=== PATIENT | female | born 1935 | race Caucasian/White ===

== ENCOUNTER → 2020-09-22 14:02 | Outpatient (BNVA) | payer MEDICARE, OTHER, SELFPAY | PROVIDERS: PCP Family Medicine; Visit Provider Anesthesiology | DX: M96.1 Postlaminectomy syndrome, not elsewhere classified (principal); M47.816 Spondylosis without myelopathy or radiculopathy, lumbar region; M54.16 Radiculopathy, lumbar region; G89.4 Chronic pain syndrome; C44.722 Squamous cell carcinoma of skin of right lower limb, including hip; C44.729 Squamous cell carcinoma of skin of left lower limb, including hip | CPT/HCPCS: 99202 ==

== ENCOUNTER → 2020-10-07 09:38 | Outpatient (BNVA) | payer MEDICARE, OTHER, SELFPAY | PROVIDERS: PCP Family Medicine; Visit Provider Anesthesiology | DX: M96.1 Postlaminectomy syndrome, not elsewhere classified (principal); M47.816 Spondylosis without myelopathy or radiculopathy, lumbar region; M54.16 Radiculopathy, lumbar region; G89.4 Chronic pain syndrome; C44.722 Squamous cell carcinoma of skin of right lower limb, including hip; C44.729 Squamous cell carcinoma of skin of left lower limb, including hip; Z79.899 Other long term (current) drug therapy | CPT/HCPCS: Q3014 ==

== ENCOUNTER 2020-11-30 05:45 | Outpatient (REF) | payer MEDICARE, OTHER, SELFPAY ==
--- NOTE | ~2020-11-30 | FL_ITS ---
EXAMINATION: XR FLUOROSCOPY WITH IMAGES CLINICAL INFORMATION: M47.816 - Spondylosis without myelopathy or radiculopathy COMPARISON: None. TECHNIQUE: Fluoroscopy performed by Chiquita Sandoval NP. Fluoroscopy time: 0.6 minutes DAP: 2.66 Gycm2 Images: 4 FINDINGS: There are spinal needles overlying the outer aspect left L3, L4, L5 neural foramen. There is contrast seen in the nerve sheaths with some transforaminal epidural extension. No visible vascular communication. FL/FL guidance in treatment room IMPRESSION: Fluoroscopy for pain management procedures.
== END 2020-11-30 05:46 | disposition home or self-care (01) ==
LOC: HO.RADIR 05:45
PROVIDERS: Visit Provider Anesthesiology
DX: M96.1 Postlaminectomy syndrome, not elsewhere classified (principal); M47.816 Spondylosis without myelopathy or radiculopathy, lumbar region; M54.16 Radiculopathy, lumbar region; G89.4 Chronic pain syndrome; C44.722 Squamous cell carcinoma of skin of right lower limb, including hip; C44.729 Squamous cell carcinoma of skin of left lower limb, including hip
CPT/HCPCS: 64493; 64494; 64495; Q9967

== ENCOUNTER → 2020-12-07 09:22 | Outpatient (BNVA) | payer MEDICARE, OTHER, SELFPAY | PROVIDERS: PCP Family Medicine; Visit Provider Nurse Practitioner Family | DX: M96.1 Postlaminectomy syndrome, not elsewhere classified (principal); M47.816 Spondylosis without myelopathy or radiculopathy, lumbar region; M54.16 Radiculopathy, lumbar region; G89.4 Chronic pain syndrome; C44.722 Squamous cell carcinoma of skin of right lower limb, including hip; C44.721 Squamous cell carcinoma of skin of unspecified lower limb, including hip; Z79.899 Other long term (current) drug therapy | CPT/HCPCS: Q3014 ==

== ENCOUNTER → 2020-12-21 09:16 | Outpatient (BNVA) | payer MEDICARE, OTHER, SELFPAY | PROVIDERS: PCP Family Medicine; Visit Provider Nurse Practitioner Family | DX: M96.1 Postlaminectomy syndrome, not elsewhere classified (principal); M47.816 Spondylosis without myelopathy or radiculopathy, lumbar region; M54.16 Radiculopathy, lumbar region; G89.4 Chronic pain syndrome; C44.722 Squamous cell carcinoma of skin of right lower limb, including hip; Z98.890 Other specified postprocedural states | CPT/HCPCS: 99212 ==

== ENCOUNTER → 2020-12-30 08:05 | Outpatient (BNVA) | payer MEDICARE, OTHER, SELFPAY | PROVIDERS: PCP Family Medicine; Visit Provider Nurse Practitioner Family | DX: M96.1 Postlaminectomy syndrome, not elsewhere classified (principal); M47.816 Spondylosis without myelopathy or radiculopathy, lumbar region; M54.16 Radiculopathy, lumbar region; G89.4 Chronic pain syndrome; C44.722 Squamous cell carcinoma of skin of right lower limb, including hip; C44.729 Squamous cell carcinoma of skin of left lower limb, including hip | CPT/HCPCS: 99212 ==

== ENCOUNTER → 2021-01-06 08:20 | Outpatient (BNVA) | payer MEDICARE, OTHER, SELFPAY | PROVIDERS: PCP Family Medicine; Visit Provider Anesthesiology | DX: M96.1 Postlaminectomy syndrome, not elsewhere classified (principal); M47.816 Spondylosis without myelopathy or radiculopathy, lumbar region; M54.16 Radiculopathy, lumbar region; G89.4 Chronic pain syndrome; C44.722 Squamous cell carcinoma of skin of right lower limb, including hip; Z88.0 Allergy status to penicillin; Z88.8 Allergy status to other drugs, medicaments and biological substances | CPT/HCPCS: Q3014 ==

== ENCOUNTER → 2021-01-18 15:45 | Outpatient (BNVA) | payer MEDICARE, OTHER, SELFPAY | PROVIDERS: PCP Family Medicine; Visit Provider Nurse Practitioner Family | DX: M96.1 Postlaminectomy syndrome, not elsewhere classified (principal); M47.816 Spondylosis without myelopathy or radiculopathy, lumbar region; M54.16 Radiculopathy, lumbar region; G89.4 Chronic pain syndrome; C44.722 Squamous cell carcinoma of skin of right lower limb, including hip; C44.729 Squamous cell carcinoma of skin of left lower limb, including hip | CPT/HCPCS: 99212 ==

== ENCOUNTER → 2021-02-14 09:18 | Outpatient (BNVA) | payer MEDICARE, OTHER, SELFPAY | PROVIDERS: PCP Family Medicine; Visit Provider Anesthesiology | DX: Z51.81 Encounter for therapeutic drug level monitoring (principal); M96.1 Postlaminectomy syndrome, not elsewhere classified; M47.816 Spondylosis without myelopathy or radiculopathy, lumbar region; M54.16 Radiculopathy, lumbar region; G89.4 Chronic pain syndrome; C44.722 Squamous cell carcinoma of skin of right lower limb, including hip; C44.729 Squamous cell carcinoma of skin of left lower limb, including hip | CPT/HCPCS: 99212 ==

== ENCOUNTER 2021-03-25 11:34 | Day surgery (SDC) | payer MEDICARE, OTHER, SELFPAY ==
[2021-03-18 14:34] VITALS: BMI 27.6
--- NOTE | 2021-03-24 09:32 | HO.ANESPROP2 ---
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 (Acute) Chronic pain syndrome (Acute) Radiculopathy, lumbar region (Acute) Spondylosis of lumbar spine (Acute) Postlaminectomy syndrome (Acute) Past Medical History Medical History (Updated 09/22/20 @ 17:59 by Dario Soliman MD) Chronic pain syndrome Postlaminectomy syndrome Radiculopathy, lumbar region 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 Social History Social History Advance Directives Information Provided: Yes (informational brochure mailed) Advance Directives on File: No Nutrition Risks: Surgical patient >75years Meds Allergies Allergy/AdvReac Type Severity Reaction Status Date / Time ciprofloxacin [From Cipro] AdvReac Intermediate rash Verified 03/22/21 09:48 doxycycline AdvReac Intermediate Unknown Verified 02/14/21 09:30 nitrofurantoin AdvReac Intermediate rash Verified 02/14/21 09:30 [From Macrobid] NSAIDS (Non-Steroidal AdvReac Intermediate rash/asthma Verified 02/14/21 09:30 Anti-Inflamma Penicillins AdvReac Intermediate rash Verified 02/14/21 09:30 salicylates AdvReac Intermediate unk Verified 02/14/21 09:30 sulfamethoxazole AdvReac Intermediate rash Verified 02/14/21 09:30 [From Bactrim] trimethoprim [From Bactrim] AdvReac Intermediate rash Verified 02/14/21 09:30 Home Medications Medication Instructions Recorded Confirmed Last Taken Type fluticasone 250 mcg-salmeterol 50 1 ea INHALATION BID 10/07/20 12/30/20 Unknown History mcg/dose blistr powdr for inhalation levothyroxine 88 mcg tablet 88 mcg PO DAILY 10/07/20 12/30/20 Unknown History (Synthroid) montelukast 10 mg tablet 10 mg PO DAILY 10/07/20 12/30/20 Unknown History omeprazole 10 mg capsule,delayed 10 mg PO DAILY 10/07/20 12/30/20 Unknown History release tiotropium bromide 1.25 2 puff INHALATION DAILY 10/07/20 12/30/20 Unknown History mcg/actuation mist for inhalation umeclidinium 62.5 mcg/actuation 1 inh INHALATION DAILY 10/07/20 12/30/20 Unknown History blister powder for inhalation albuterol sulfate 90 mcg/actuation 1 puff INHALATION Q8H g 12/07/20 12/30/20 Unknown History aerosol inhaler ascorbate calcium (vitamin C) 500 500 mg PO DAILY 12/21/20 12/30/20 Unknown History mg tablet cholecalciferol (vitamin D3) 25 25 mcg PO DAILY 12/21/20 12/30/20 Unknown History mcg (1,000 unit) capsule cranberry 400 mg capsule 400 mg PO DAILY 12/21/20 12/30/20 Unknown History lutein 6 mg capsule 6 mg PO DAILY 12/21/20 12/30/20 Unknown History vitamin B complex (B 1 tab PO DAILY 12/21/20 12/30/20 Unknown History Complex-Vitamin B12) vitamin K2 45 mcg capsule 45 mcg PO DAILY 12/21/20 12/30/20 Unknown History zoledronic acid 5 mg/100 mL in IV .yearly ml 12/21/20 12/30/20 Unknown History mannitol 5 %-water intravenous piggybck (Reclast) Exam Exam Date and Time: March 24, 2021 0932 Height,Weight and Vital Signs: Height 4 ft 11 in Weight 62.142 kg Assessment and Plan Assessment Anesthesia Assessment: Chart Reviewed Documented by User: Melida Matias MD 03/25/21 12:01 [facility] Past Medical History Medical History (Updated 09/22/20 @ 17:59 by Dario Soliman MD) Chronic pain syndrome Postlaminectomy syndrome Radiculopathy, lumbar region 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 Social History Social History Advance Directives Information Provided: Yes (informational brochure mailed) Advance Directives on File: No Nutrition Risks: Surgical patient >75years Meds Allergies Allergy/AdvReac Type Severity Reaction Status Date / Time ciprofloxacin [From Cipro] AdvReac Intermediate rash Verified 03/22/21 09:48 doxycycline AdvReac Intermediate Unknown Verified 02/14/21 09:30 nitrofurantoin AdvReac Intermediate rash Verified 02/14/21 09:30 [From Macrobid] NSAIDS (Non-Steroidal AdvReac Intermediate rash/asthma Verified 02/14/21 09:30 Anti-Inflamma Penicillins AdvReac Intermediate rash Verified 02/14/21 09:30 salicylates AdvReac Intermediate unk Verified 02/14/21 09:30 sulfamethoxazole AdvReac Intermediate rash Verified 02/14/21 09:30 [From Bactrim] trimethoprim [From Bactrim] AdvReac Intermediate rash Verified 02/14/21 09:30 Home Medications Medication Instructions Recorded Confirmed Last Taken Type fluticasone 250 mcg-salmeterol 50 1 ea INHALATION BID 10/07/20 12/30/20 Unknown History mcg/dose blistr powdr for inhalation levothyroxine 88 mcg tablet 88 mcg PO DAILY 10/07/20 12/30/20 Unknown History (Synthroid) montelukast 10 mg tablet 10 mg PO DAILY 10/07/20 12/30/20 Unknown History omeprazole 10 mg capsule,delayed 10 mg PO DAILY 10/07/20 12/30/20 Unknown History release tiotropium bromide 1.25 2 puff INHALATION DAILY 10/07/20 12/30/20 Unknown History mcg/actuation mist for inhalation umeclidinium 62.5 mcg/actuation 1 inh INHALATION DAILY 10/07/20 12/30/20 Unknown History blister powder for inhalation albuterol sulfate 90 mcg/actuation 1 puff INHALATION Q8H g 12/07/20 12/30/20 Unknown History aerosol inhaler ascorbate calcium (vitamin C) 500 500 mg PO DAILY 12/21/20 12/30/20 Unknown History mg tablet cholecalciferol (vitamin D3) 25 25 mcg PO DAILY 12/21/20 12/30/20 Unknown History mcg (1,000 unit) capsule cranberry 400 mg capsule 400 mg PO DAILY 12/21/20 12/30/20 Unknown History lutein 6 mg capsule 6 mg PO DAILY 12/21/20 12/30/20 Unknown History vitamin B complex (B 1 tab PO DAILY 12/21/20 12/30/20 Unknown History Complex-Vitamin B12) vitamin K2 45 mcg capsule 45 mcg PO DAILY 12/21/20 12/30/20 Unknown History zoledronic acid 5 mg/100 mL in IV .yearly ml 12/21/20 12/30/20 Unknown History mannitol 5 %-water intravenous piggybck (Reclast) Exam Airway Mallampati Class: II TM Dist: >3cm Neck ROM: Full
--- NOTE | ~2021-03-25 | FL_ITS ---
EXAMINATION: Intraoperative fluoroscopy CLINICAL INFORMATION: Lumbar stim trial COMPARISON: Intraoperative fluoroscopy 11/30/2020 TECHNIQUE: Intraoperative fluoroscopy was provided for use by Dr. Soliman. A total of 4 images were saved to PACS. A radiologist was not present during imaging. Today's dictation is only for administrative purposes to document intraoperative fluoroscopic usage. TOTAL FLUOROSCOPIC TIME: 5.4 minutes FL/FL guidance in OR FINDINGS~\^^ Intraoperative fluoroscopy provided for use by Dr. Soliman. Please see operative note for detailed findings.
[2021-03-25 11:46] VITALS: BP 157/62; PULSE 83; RESP 18; TEMP 36.8; O2SAT 99
[2021-03-25] MEDS: Lactated Ringers 1,000 ML 100 ML IVCONT (12:34)
--- NOTE | 2021-03-25 13:43 | PC.NURSE ---
MD ONEAL BY BEDSIDE EVALUATING PATIENT REGARDING HER PACEMAKER. NO HISTORY. ADDED INTO HISTORY ALSO A [facility] REP BY BEDSIDE TESTING PACEMAKER PRIOR TO HER PROCEDURE. OK TO PROCEED.
--- NOTE | 2021-03-25 14:54 | PM.OP ---
Brief Operative Note Date of Service: 03/25/21 Pre-op diagnosis: Postlaminectomy since Post-op diagnosis: same Procedure: Trial of [employer] spinal cord stimulator Implants: None permanent Surgeon: Dario Soliman MD Anesthesia: MAC Was an Color Laboratory Technician used for this Procedure?: No Estimated blood loss (mL): 7 Pathology: none sent Condition: stable Disposition: PACU
--- NOTE | 2021-03-25 14:56 | W.PM.OPN ---
Operative Note Operative Note Date of Service: 03/25/21 Narrative: Loreto is very pleasant 85 years old female years old female who came today into the operating room for trial of spinal cord stimulator [employer] for the treatment of post laminectomy syndrome. Preoperatively patient received clindamycin 900 mg 30 minutes before the procedure. After obtaining informed consent the patient was brought to the operating room, she was positioned prone on operating table, [place] monitors were applied and patient was deeply sedated.? ?Time-out was performed delineating correct site, side, the nature of the procedure, patient's allergy, preoperative antibiotic if needed.? All operating room staff was participating in OR time-out procedure. Patient's entire back was prepped with DuraPrep twice and draped with full body fenestrated drape.? Sterilely draped C-arm was brought over operating field and square picture of T11,T12, L1 L2 vertebrae as were demonstrated on the screen.? Attention FIRST? was concentrated on the right T12-L1 epidural interspace.? The location of the projection of the right pedicle center of the L2 vertebra was found on the skin using C-arm.? This location was injected with mixture of lidocaine 2% and Marcaine 0.5% 5 cc.? After that 11 blade was used to make a ralph on the skin.? 10 cm 14 gauge? introducer epidural needle was inserted through the ralph and advanced to? L1-L2 epidural interspace.? The? advancement of the needle was performed on anterior posterior and lateral views.? Guitar wire and loss of resistance technique were used to locate epidural space.? When guitar wire was spread in the epidural fashion, epidural lead was inserted through the skin and it was advanced to bottom of T7 position slightly right from MIDLINE.? After that location of the projection of the LEFT pedicle center of the L3 vertebra was found on the skin using C-arm.? This location was injected with mixture of lidocaine 2% and Marcaine 0.5% 5 cc.? After that 11 blade was used to make a ralph on the skin.? 10 cm 14 gauge curved introducer epidural needle was inserted through the ralph and advanced to L1-L2 epidural interspace.? The advancement of the needle was performed on anterior posterior and lateral views.? Guitar wire and loss of resistance technique were used to locate epidural space.? When guitar wire was spread in the epidural fashion, epidural lead was inserted through the needle and advanced to the bottom of T7 epidural interspace slightly left to the existing electrode. Impedance was checked and was satisfactory .? The patient was awake at this moment and epidural leads were connected to testing device.? Testing demonstrated pain of the patient corresponding to the stimulation pattern.? After that the needles were withdrawn, the stylette wires were removed from the epidural leads.? Epidural leads were smeared with Dermabond glue and Steri-Strips were used to glue the epidural leads to the patient's skin. Sterile dressing was applied to the patient's back.? The testing device was also taped to the patient's back.? The patient tolerated procedure well she was transferred to the [facility] and went to PACU for recovery.
[2021-03-25 15:00] VITALS: BP 106/75; PULSE 79; RESP 14; TEMP 36.5; O2SAT 98
[2021-03-25 15:15] VITALS: BP 136/58; PULSE 71; RESP 16; O2SAT 98
[2021-03-25 15:30] VITALS: BP 143/57; PULSE 66; RESP 18; TEMP 36.6; O2SAT 97
[2021-03-25 15:40] VITALS: BP 133/61; PULSE 78; RESP 18; O2SAT 98
== END 2021-03-25 16:10 | disposition home or self-care (01) ==
PROVIDERS: PCP Family Medicine; Visit Provider Anesthesiology
PROC: (CPT 63650; principal; 2021-03-25 13:50)
DX: M54.16 Radiculopathy, lumbar region (principal); M47.816 Spondylosis without myelopathy or radiculopathy, lumbar region; M96.1 Postlaminectomy syndrome, not elsewhere classified; G89.4 Chronic pain syndrome; C44.729 Squamous cell carcinoma of skin of left lower limb, including hip; C44.722 Squamous cell carcinoma of skin of right lower limb, including hip; Z79.899 Other long term (current) drug therapy; Z96.643 Presence of artificial hip joint, bilateral; Z88.0 Allergy status to penicillin; Z88.2 Allergy status to sulfonamides; Z88.1 Allergy status to other antibiotic agents
CPT/HCPCS: 63650 ×2; C1778; J1100; J2250; J2370; J3010

== ENCOUNTER → 2021-03-31 09:00 | Outpatient (BNVA) | payer MEDICARE, OTHER, SELFPAY | PROVIDERS: PCP Family Medicine; Visit Provider Anesthesiology | DX: M96.1 Postlaminectomy syndrome, not elsewhere classified (principal); M47.816 Spondylosis without myelopathy or radiculopathy, lumbar region; M54.16 Radiculopathy, lumbar region; G89.4 Chronic pain syndrome; C44.722 Squamous cell carcinoma of skin of right lower limb, including hip; C44.729 Squamous cell carcinoma of skin of left lower limb, including hip | CPT/HCPCS: 99212 ==

== ENCOUNTER 2021-04-05 06:27 | Outpatient (REF) | payer MEDICARE, OTHER, SELFPAY ==
--- NOTE | ~2021-04-05 | FL_ITS ---
EXAMINATION: XR FLUOROSCOPY WITH IMAGES CLINICAL INFORMATION: Postlaminectomy syndrome. M96.1 COMPARISON: Fluoroscopic spot views 03/25/2021 TECHNIQUE: Fluoroscopy performed by Dr. Dario Soliman. Fluoroscopy time: 1.0 minutes DAP: 12.1 Gycm2 Images: 2 FINDINGS: The spinal stimulator electrodes noted on prior exam 03/25/2021 are no longer demonstrated. There is a spinal needle overlying the posterior mid lumbar spine interlaminar space. Epidural contrast is demonstrated. No visible vascular communication. Degenerative changes are present with multilevel the disc narrowing and endplate sclerosis and vertebral spurring. FL/FL guidance in treatment room IMPRESSION: Fluoroscopy for pain management procedure.
== END 2021-04-05 06:28 | disposition home or self-care (01) ==
LOC: HO.RADIR 06:27
PROVIDERS: Visit Provider Anesthesiology
DX: M96.1 Postlaminectomy syndrome, not elsewhere classified (principal); C44.722 Squamous cell carcinoma of skin of right lower limb, including hip; C44.729 Squamous cell carcinoma of skin of left lower limb, including hip; M47.816 Spondylosis without myelopathy or radiculopathy, lumbar region; G89.4 Chronic pain syndrome; M54.16 Radiculopathy, lumbar region; Z79.899 Other long term (current) drug therapy
CPT/HCPCS: 62323; J1170; J2270; Q9967

== ENCOUNTER → 2021-04-11 08:16 | Outpatient (BNVA) | payer MEDICARE, OTHER, SELFPAY | PROVIDERS: PCP Family Medicine; Visit Provider Anesthesiology | DX: M47.816 Spondylosis without myelopathy or radiculopathy, lumbar region (principal); M54.16 Radiculopathy, lumbar region; G89.4 Chronic pain syndrome; C44.722 Squamous cell carcinoma of skin of right lower limb, including hip; C44.729 Squamous cell carcinoma of skin of left lower limb, including hip | CPT/HCPCS: 99212 ==

== ENCOUNTER 2021-08-19 06:00 | Day surgery (SDC) | payer MEDICARE, OTHER, SELFPAY ==
[2021-07-04 14:42] VITALS: BMI 26.2
--- NOTE | 2021-08-18 12:41 | HO.ANESPROP2 ---
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 (Acute) Chronic pain syndrome (Acute) Radiculopathy, lumbar region (Acute) Spondylosis of lumbar spine (Acute) Postlaminectomy syndrome (Acute) Past Medical History Medical History Asthma Chronic pain syndrome History of aspiration pneumonia Pacemaker Postlaminectomy syndrome Postoperative nausea Radiculopathy, lumbar region 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 If so, by whom?: No Are you DNR?: No Advance Directives: No Advance Directives Information Provided: Yes Advance Directives on File: No Recently lost weight without trying: No Eating poorly because of decreased appetite: No Nutrition Risks: Surgical patient >75years Meds Allergies Allergy/AdvReac Type Severity Reaction Status Date / Time vancomycin Allergy Severe Anaphylaxis Verified 08/19/21 06:16 ciprofloxacin [From Cipro] AdvReac Intermediate rash Verified 08/19/21 06:16 doxycycline AdvReac Intermediate Unknown Verified 08/19/21 06:16 nitrofurantoin AdvReac Intermediate rash Verified 08/19/21 06:16 [From Macrobid] NSAIDS (Non-Steroidal AdvReac Intermediate rash/asthma Verified 08/19/21 06:16 Anti-Inflamma Penicillins AdvReac Intermediate rash Verified 08/19/21 06:16 salicylates AdvReac Intermediate Rash Verified 08/19/21 06:16 sulfamethoxazole AdvReac Intermediate rash Verified 08/19/21 06:16 [From Bactrim] trimethoprim [From Bactrim] AdvReac Intermediate rash Verified 08/19/21 06:16 Home Medications Medication Instructions Recorded Confirmed Last Taken Type fluticasone 250 mcg-salmeterol 50 1 ea INHALATION BID 10/07/20 07/04/21 08/19/21 04:30 History mcg/dose blistr powdr for inhalation levothyroxine 88 mcg tablet 88 mcg PO DAILY 10/07/20 07/04/21 08/19/21 04:30 History (Synthroid) montelukast 10 mg tablet 10 mg PO BEDTIME 10/07/20 07/04/21 Unknown History omeprazole 10 mg capsule,delayed 10 mg PO DAILY 10/07/20 07/04/21 08/19/21 04:30 History release tiotropium bromide 1.25 2 puff INHALATION DAILY 10/07/20 12/30/20 Unknown History mcg/actuation mist for inhalation umeclidinium 62.5 mcg/actuation 1 inh INHALATION DAILY 10/07/20 07/04/21 08/19/21 04:30 History blister powder for inhalation albuterol sulfate 90 mcg/actuation 1 puff INHALATION Q8H g 12/07/20 07/04/21 03/25/21 History aerosol inhaler ascorbate calcium (vitamin C) 500 500 mg PO DAILY 12/21/20 07/04/21 Unknown History mg tablet cholecalciferol (vitamin D3) 25 25 mcg PO DAILY 12/21/20 07/04/21 Unknown History mcg (1,000 unit) capsule cranberry 400 mg capsule 400 mg PO DAILY 12/21/20 07/04/21 Unknown History lutein 6 mg capsule 6 mg PO DAILY 12/21/20 07/04/21 Unknown History vitamin B complex (B 1 tab PO DAILY 12/21/20 07/04/21 Unknown History Complex-Vitamin B12) vitamin K2 45 mcg capsule 45 mcg PO DAILY 12/21/20 07/04/21 Unknown History zoledronic acid 5 mg/100 mL in IV .yearly ml 12/21/20 12/30/20 Unknown History mannitol 5 %-water intravenous piggybck (Reclast) Citracal 650 mg PO BID 07/04/21 07/04/21 Unknown History acetaminophen 500 mg tablet 1,000 mg PO QID PRN 07/04/21 07/04/21 08/19/21 04:30 History ferrous sulfate 324 mg (65 mg 1 tab PO Q OTHER DAY 07/04/21 08/19/21 08/18/21 History iron) tablet,delayed release Exam Exam Date and Time: August 18, 2021 1241 Height,Weight and Vital Signs: Height 4 ft 11 in Weight 58.967 kg Narrative Narrative: ECHO 01/2021 Limited echo. LV is normal in size and thickness. LV systolic function is normal with EF of 66%. No significant LV WMA. There is normal RV size and function. Compared to 10/2020, no significant changes. Pacer Interr 05/2021 DDD-60 Assessment and Plan Assessment Anesthesia Assessment: Chart Reviewed Documented by User: Yvonne Shirley MD 08/19/21 07:56 [facility] Past Medical History Medical History Asthma Chronic pain syndrome History of aspiration pneumonia Pacemaker Postlaminectomy syndrome Postoperative nausea Radiculopathy, lumbar region 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 Surgical History Surgical History History of back surgery Hx of bilateral hip replacements Hx of colonoscopy Hx of dilation and curettage Hx of nasal polypectomy History of Problems with Anesthesia: No Social History Social History Are you a primary direct care specialist to a significant other at home: No Do you presently have visiting nurse or other home services: No Patient Tobacco Use Status: Never used Tobacco Use of substances other than those prescribed or required for medical reasons: No Have you been hit, kicked, punched, or otherwise hurt by someone within the past year? If so, by whom?: No Are you DNR?: No Advance Directives: No Advance Directives Information Provided: Yes Advance Directives on File: No Recently lost weight without trying: No Eating poorly because of decreased appetite: No Nutrition Risks: Surgical patient >75years Meds Allergies Allergy/AdvReac Type Severity Reaction Status Date / Time vancomycin Allergy Severe Anaphylaxis Verified 08/19/21 06:16 ciprofloxacin [From Cipro] AdvReac Intermediate rash Verified 08/19/21 06:16 doxycycline AdvReac Intermediate Unknown Verified 08/19/21 06:16 nitrofurantoin AdvReac Intermediate rash Verified 08/19/21 06:16 [From Macrobid] NSAIDS (Non-Steroidal AdvReac Intermediate rash/asthma Verified 08/19/21 06:16 Anti-Inflamma Penicillins AdvReac Intermediate rash Verified 08/19/21 06:16 salicylates AdvReac Intermediate Rash Verified 08/19/21 06:16 sulfamethoxazole AdvReac Intermediate rash Verified 08/19/21 06:16 [From Bactrim] trimethoprim [From Bactrim] AdvReac Intermediate rash Verified 08/19/21 06:16 Home Medications Medication Instructions Recorded Confirmed Last Taken Type fluticasone 250 mcg-salmeterol 50 1 ea INHALATION BID 10/07/20 07/04/21 08/19/21 04:30 History mcg/dose blistr powdr for inhalation levothyroxine 88 mcg tablet 88 mcg PO DAILY 10/07/20 07/04/21 08/19/21 04:30 History (Synthroid) montelukast 10 mg tablet 10 mg PO BEDTIME 10/07/20 07/04/21 Unknown History omeprazole 10 mg capsule,delayed 10 mg PO DAILY 10/07/20 07/04/21 08/19/21 04:30 History release tiotropium bromide 1.25 2 puff INHALATION DAILY 10/07/20 12/30/20 Unknown History mcg/actuation mist for inhalation umeclidinium 62.5 mcg/actuation 1 inh INHALATION DAILY 10/07/20 07/04/21 08/19/21 04:30 History blister powder for inhalation albuterol sulfate 90 mcg/actuation 1 puff INHALATION Q8H g 12/07/20 07/04/21 03/25/21 History aerosol inhaler ascorbate calcium (vitamin C) 500 500 mg PO DAILY 12/21/20 07/04/21 Unknown History mg tablet cholecalciferol (vitamin D3) 25 25 mcg PO DAILY 12/21/20 07/04/21 Unknown History mcg (1,000 unit) capsule cranberry 400 mg capsule 400 mg PO DAILY 12/21/20 07/04/21 Unknown History lutein 6 mg capsule 6 mg PO DAILY 12/21/20 07/04/21 Unknown History vitamin B complex (B 1 tab PO DAILY 12/21/20 07/04/21 Unknown History Complex-Vitamin B12) vitamin K2 45 mcg capsule 45 mcg PO DAILY 12/21/20 07/04/21 Unknown History zoledronic acid 5 mg/100 mL in IV .yearly ml 12/21/20 12/30/20 Unknown History mannitol 5 %-water intravenous piggybck (Reclast) Citracal 650 mg PO BID 07/04/21 07/04/21 Unknown History acetaminophen 500 mg tablet 1,000 mg PO QID PRN 07/04/21 07/04/21 08/19/21 04:30 History ferrous sulfate 324 mg (65 mg 1 tab PO Q OTHER DAY 07/04/21 08/19/21 08/18/21 History iron) tablet,delayed release Exam Airway Mallampati Class: III (Prominent upper caps) TM Dist: >3cm Neck ROM: Limited Loose/Missing/Broken Teeth: No Heart: RRR Lungs: CTA AFTER UPDRAFT TREATMENT Assessment and Plan Assessment Anesthesia Assessment: Anesthesia Plan Discussed Final Anesthetic Review History of Problems with Anesthesia: No NPO: Yes ASA Class: III Final Preanesthetic Review: Meds/Allgs Chart Reviewed, Consent Obtained/Reviewed and Anes Risks/Benef Reviewed Patient Risk: Intermediate Procedure Risk: Low Anesthetic Plan Anesthetic Plan: MAC: Disposition: Standard PACU
--- NOTE | 2021-08-18 14:31 | MHC.SHP ---
Pre-Procedural Eval Section A Date of Service: 08/19/21 The patient is an INPATIENT: No Changes since office visit: Yes Patient answered all questions The History & Physical has been completed within 30 days and I have reviewed it.: No Section B Chief Complaint: postlaminectomy syndrome Details of Present Illness: postlaminectomy syndrome Relevant Family History (Specify if Yes): No Relevant Social History: None Present Medications: see Short Stay Collaborative assessment Medical History: No relevant PMH History of Previous Operations: Relevant previous surgery/procedure and date(s) Allergies: Allergies Allergy/AdvReac Type Severity Reaction Status Date / Time vancomycin Allergy Severe Anaphylaxis Verified 07/04/21 14:19 ciprofloxacin [From Cipro] AdvReac Intermediate rash Verified 07/04/21 14:19 doxycycline AdvReac Intermediate Unknown Verified 07/04/21 14:19 nitrofurantoin AdvReac Intermediate rash Verified 07/04/21 14:19 [From Macrobid] NSAIDS (Non-Steroidal AdvReac Intermediate rash/asthma Verified 07/04/21 14:19 Anti-Inflamma Penicillins AdvReac Intermediate rash Verified 07/04/21 14:19 salicylates AdvReac Intermediate Rash Verified 07/04/21 14:19 sulfamethoxazole AdvReac Intermediate rash Verified 07/04/21 14:19 [From Bactrim] trimethoprim [From Bactrim] AdvReac Intermediate rash Verified 07/04/21 14:19 Review of Systems Sugical H&P ROS: Negative: Constitution, Cardiovascular, Respiratory, Neurological, Psychiatric, Hem-Onc, Allergic/Immunologic, Gastrointestinal, Genitourinary, Integumentary, Endocrine and Eyes/Ears/Nose/Throat and Yes, Specify: Musculoskeletal (postlaminectomy syndrome, spondylosis lumbar spine) Exam Surgical H&P Exam: Normal: HEENT, Normal: Heart, Normal: Lungs, Normal: Extremities, Normal: Abdomen, Normal: Skin and Normal: Neurological Plan Diagnosis/Plan: Unchanged I have reviewed the history and physical and performed a pertinent physical examination on my patient. No changes have occurred unless specified.
[2021-08-19] VITALS (7 sets, daily range): BP systolic 114–144; BP diastolic 45–64; PULSE 43–87; RESP 16–18; TEMP 36.7–37.1; O2SAT 96–98; BMI 25.4
--- NOTE | ~2021-08-19 | FL_ITS ---
EXAMINATION: XR FLUOROSCOPY WITH IMAGES CLINICAL INFORMATION: Lumbar spinal cord stimulation trial. COMPARISON: None. TECHNIQUE: Fluoroscopy performed by Dr. Dario Soliman. Fluoroscopy time: 2.8 minutes DAP: 11.5 Gycm2 Images: 3 FINDINGS: Wiring is seen overlying the thoracic spine. This likely extends to the level of T9. FL/FL guidance in OR IMPRESSION: Spinal stimulator wiring over the thoracic spine. Please refer to operative report for further information.
[2021-08-19] MEDS: Lactated Ringers 1,000 ML 50 ML IVCONT (07:01)
[2021-08-19] MEDS: Albuterol Sulfate (0.083%) 2.5 MG/3 ML VIAL.NEB INHALE (07:36)
--- NOTE | 2021-08-19 08:14 | PC.NURSE ---
Patient arrived to [facility] for morning procedure. When leaving the waiting room, patient bumped her right mullins on the corner of a parked wheelchair. This nurse immediately had patient sit down in a chair and mullins was assessed. Quarter size, purple raised bruise present on mullins, no bleeding noted. Patient verbalized that area felt sore and explained that she bruises very easily . Patient escorted to preop room where intake was begun. Once patient was changed and in the stretcher, right mullins was reassessed. Bruised area remained the same shape and size and still sore per patient. Ice pack applied to site. Dr. Soliman and OR nurse Carmelita Wynn made aware.
--- NOTE | 2021-08-19 09:26 | PM.OP ---
Brief Operative Note Date of Service: 08/19/21 Pre-op diagnosis: postlaminectomy syndrome Post-op diagnosis: same Procedure: trial of [employer] SCS Implants: none pemanent Surgeon: Dario Soliman MD Anesthesia: MAC Was an Folding Machine Feeder used for this Procedure?: No Estimated blood loss (mL): 13 Pathology: none sent Condition: stable Disposition: PACU
--- NOTE | 2021-08-19 09:27 | P.OP_ITS ---
Operative Note Operative Note Date of Service: 08/19/21 Narrative: Loreto is very pleasant 85 years old female years old female who came today into the operating room for trial of spinal cord stimulator Nevro for the treatment of post laminectomy syndrome. Preoperatively patient received clindamycin 900 mg 30 minutes before the procedure. After obtaining informed consent the patient was brought to the operating room, she was positioned prone on operating table, [employer] monitors were applied and patient was moderately sedated.? ?Time-out was performed delineating correct site, side, the nature of the procedure, patient's allergy, preoperative antibiotic if needed.? All operating room staff was participating in OR time-out procedure. Patient's entire back was prepped with DuraPrep twice and draped with full body fenestrated drape.? Sterilely draped C-arm was brought over operating field and square picture of T11,T12, L1 L2 vertebrae as were demonstrated on the screen.? Attention FIRST? was concentrated on the right T12-L1 epidural interspace.? The location of the projection of the right pedicle center of the L2 vertebra was found on the skin using C-arm.? This location was injected with mixture of lidocaine 2% and Marcaine 0.5% 5 cc.? After that 11 blade was used to make a ralph on the skin.? 10 cm 14 gauge? introducer epidural needle was inserted through the ralph and advanced to? L1-L2 epidural interspace.? The? advancement of the needle was performed on anterior posterior and lateral views.? Guitar wire and loss of resistance technique were used to locate epidural space.? When guitar wire was spread in the epidural fashion, epidural lead was inserted through the skin and it was advanced to bottom of T7 position strictly at MIDLINE.? After that location of the projection of the LEFT pedicle center of the L3 vertebra was found on the skin using C-arm.? This location was injected with mixture of lidocaine 2% and Marcaine 0.5% 5 cc.? After that 11 blade was used to make a ralph on the skin.? 10 cm 14 gauge curved introducer epidural needle was inserted through the ralph and advanced to L1-L2 epidural interspace.? The advancemet was very difficult, the needle inadvertantly went into L1 - L2 intrathecal/ subarachnoid space and clear flow of CSF was observed. the needle was withdrawn and pressure was held for 2 minutes. After that the needle was reinserted and again advancement of the needle was performed on anterior posterior and lateral views to one level above. AP and lateral views were used.? Guitar wire and loss of resistance technique were used to locate epidural space.? When guitar wire was spread in the epidural fashion, epidural lead was inserted through the needle and advanced to the top of middle of the T8 epidural interspace slightly right to the existing electrode considering the patient's pain was mostly on the right. After the satisfactory position of the needles was established introducer needles and stilets were withdrawn from the electrodes arrays and care was taken not to dislodge the leads. The anchoring devices were advanced to the level of the skin over the bodies of the leads and sutured to the skin using 2 silk sutures 0-0. after that the anchoring screws were tight until two clicks were heard. Bacitracin ointments were applied to the levels of the neesles entrance and sterile dressing was applied. Impedance was checked and was satisfactory .? The patient was awake at this moment and epidural leads were connected to testing device.?The testing device was also taped to the patient's back.? The patient tolerated procedure well she was transferred to the [facility] and went to PACU for recovery.
[2021-08-19] MEDS: Acetaminophen 325 MG TABLET 650 MG PO (09:55)
== END 2021-08-19 10:23 ==
LOC: HO.SSS 06:00
PROVIDERS: PCP Family Medicine; Visit Provider Anesthesiology
PROC: (CPT 63650; principal; 2021-08-19 07:30)
DX: M96.1 Postlaminectomy syndrome, not elsewhere classified (principal); G89.4 Chronic pain syndrome; M47.26 Other spondylosis with radiculopathy, lumbar region; M81.0 Age-related osteoporosis without current pathological fracture; J45.909 Unspecified asthma, uncomplicated; C44.729 Squamous cell carcinoma of skin of left lower limb, including hip; C44.722 Squamous cell carcinoma of skin of right lower limb, including hip; Z79.899 Other long term (current) drug therapy; Z95.0 Presence of cardiac pacemaker; Z88.0 Allergy status to penicillin; Z88.1 Allergy status to other antibiotic agents; Z88.2 Allergy status to sulfonamides; Z88.8 Allergy status to other drugs, medicaments and biological substances
CPT/HCPCS: 63650 ×2; 94640; C1713; C1778; J2250

== ENCOUNTER → 2021-08-25 08:37 | Outpatient (BNVA) | payer MEDICARE, OTHER, SELFPAY | PROVIDERS: PCP Family Medicine; Visit Provider Anesthesiology | DX: M96.1 Postlaminectomy syndrome, not elsewhere classified (principal); M25.551 Pain in right hip; G89.4 Chronic pain syndrome; M47.26 Other spondylosis with radiculopathy, lumbar region; C44.729 Squamous cell carcinoma of skin of left lower limb, including hip; C44.722 Squamous cell carcinoma of skin of right lower limb, including hip; Z96.643 Presence of artificial hip joint, bilateral | CPT/HCPCS: 99212 ==